=== PATIENT | female | born 2000 | race Hispanic/Latino ===

== ENCOUNTER 2021-06-07 18:19 | Emergency (ER) | payer MEDICAID, OTHER ==
[~2021-06-07] VITALS: Ht 157.5 cm; Wt 81.6 kg
[2021-06-07 18:21] VITALS: BP 122/62
== END 2021-06-07 19:08 | disposition left against medical advice (07) ==
LOC: EDH 18:19
DX: M79.674 Pain in right toe(s) (principal); Z53.21 Procedure and treatment not carried out due to patient leaving prior to being seen by health care provider